=== PATIENT | female | born 1955 | race Caucasian/White ===

== ENCOUNTER 2016-10-27 10:39 | Emergency (ER) | payer BC ==
[~2016-10-27] VITALS: Ht 157.5 cm; Wt 47.0 kg
[~2016-10-27 10:39] MED LIST: AUGMENTIN875 MG PO; BACTRIM,SEPT1 TABLET PO; DOCUSATE SODIU100 MG PO; ENDOCET 5-3251 EACH PO; MILK OF MAGNESI10 ML PO; TRAMADOL HCL50 MG PO
[2016-10-27] MEDS ORDERED: KENALOG,ARISTOC80 G1 TP (11:53)
[2016-10-27] MEDS ORDERED: ATARAX,VISTARIL25 MG PO (11:53)
[2016-10-27] MEDS ORDERED: BENADRYL25 MG PO (11:54)
[2016-10-27] MEDS ORDERED: TRAMADOL HCL50 MG PO (12:19)
[2016-10-27 13:03] VITALS: BP 141/78
== END 2016-10-27 13:00 | disposition home or self-care (01) ==
LOC: EME 10:39
DX: M77.32 Calcaneal spur, left foot (principal); L98.9 Disorder of the skin and subcutaneous tissue, unspecified; F17.210 Nicotine dependence, cigarettes, uncomplicated
CPT/HCPCS: 73630; 99281; 99283